=== PATIENT | male | born 1980 | race Caucasian/White ===

== ENCOUNTER 2016-10-10 17:15 | Emergency (ER) | payer OTHER ==
[~2016-10-10] VITALS: Ht 170.1 cm; Wt 77.1 kg
[~2016-10-10 17:15] MED LIST: BACTRIM DS 8001 TA1 PO; CLINDAMYCIN HC300 MG PO; CYCLOBENZAPRINE10 MG PO; LEVAQUIN750 M1 PO; Motrin,Rufen800 MG PO; NAPROSYN500 MG PO; VENTOLIN H0.09 MG/AC INH; ZOFRAN ODT4 MG SL
[2016-10-10] MEDS ORDERED: SUBOXONE 8 MG-1 EACH SL (17:44)
[2016-10-10] MEDS ORDERED: CYCLOBENZAPRINE10 MG PO (19:45)
== END 2016-10-10 19:53 | disposition home or self-care (01) ==
LOC: ED 17:15
DX: S16.1XXA Strain of muscle, fascia and tendon at neck level, initial encounter (principal); S20.211A Contusion of right front wall of thorax, initial encounter; S00.81XA Abrasion of other part of head, initial encounter; F17.200 Nicotine dependence, unspecified, uncomplicated; Z88.0 Allergy status to penicillin; Z88.1 Allergy status to other antibiotic agents; Z79.899 Other long term (current) drug therapy; Y04.8XXA Assault by other bodily force, initial encounter; Y93.89 Activity, other specified; Y92.89 Other specified places as the place of occurrence of the external cause; Y99.9 Unspecified external cause status